=== PATIENT | male | born 1945 | race Caucasian/White ===

== ENCOUNTER 2018-06-16 10:47 | Outpatient (CLI) | payer MEDICARE, OTHER ==
--- NOTE | 2018-06-16 13:07 | XRAY Report ---
Reason: J12.9 Procedure Date: 06/16/2018 Accession Number: [id number] / [id number] Procedure: XRN - Chest 2 View X-Ray CPT Code: 46811 FULL RESULT: EXAM: CHEST RADIOGRAPHY EXAM DATE: 06/16/2018 11:07 AM. CLINICAL HISTORY: J12. 9. COMPARISON: CHEST 2 VIEW 05/19/2018 12:43 PM. TECHNIQUE: 2 views. FINDINGS: Lungs/Pleura: Persistent extensive posterior right lower lobe airspace disease. Cannot exclude small pleural effusion. Mediastinum: Heart and mediastinal contours are unremarkable. Other: Right [employer] shunt tubing noted. Mild lower thoracic kyphosis. IMPRESSION: 1. Persistent extensive posterior right lower lobe airspace disease. Recommend contrast-enhanced chest CT to further characterize. [facility]
== END 2018-06-16 10:48 | disposition home or self-care (01) ==
LOC: DI.N 10:47
PROVIDERS: ATTEND Family Medicine
DX: J12.9 Viral pneumonia, unspecified (principal)
CPT/HCPCS: 71046

== ENCOUNTER 2018-07-06 09:35 | Outpatient (CLI) | payer MEDICARE, OTHER ==
--- NOTE | 2018-07-06 10:55 | XRAY Report ---
Reason: PNEUMONIA Procedure Date: 07/06/2018 Accession Number: [id number] / [id number] Procedure: XR - Chest 2 View X-Ray CPT Code: 43149 FULL RESULT: EXAM: CHEST RADIOGRAPHY EXAM DATE: 07/06/2018 10:09 AM. CLINICAL HISTORY: Pneumonia. COMPARISON: Chest 2 views 06/16/2018 11:13 AM. TECHNIQUE: 2 views. FINDINGS: Lungs/Pleura: Right posterior airspace infiltrate is redemonstrated. No new airspace infiltrate is seen. There is likely a small accompanying pleural effusion. No pneumothorax seen. Mediastinum: Heart and mediastinal contours are unremarkable. Other: Ventriculoperitoneal shunt tubing is again seen. IMPRESSION: Persistent right basilar airspace consolidation. RADIA
== END 2018-07-06 09:36 | disposition home or self-care (01) ==
LOC: DI 09:35
PROVIDERS: ATTEND Family Medicine
DX: J12.9 Viral pneumonia, unspecified (principal)
CPT/HCPCS: 71046